=== PATIENT | female | born 1955 | race Caucasian/White ===

== ENCOUNTER 2020-04-29 11:09 | Emergency (ER) | payer MEDICARE, SELFPAY ==
[~2020-04-29] VITALS: Ht 152.4 cm; Wt 58.1 kg
[2020-04-29 11:19] VITALS: BP 139/73
--- NOTE | 2020-04-29 11:42 | NUR ---
C/O DIARRHEA. COVID+PMH: JASON
--- NOTE | 2020-04-29 12:55 | NUR ---
22G IV PLACED TO RIGHT HAND WITH GOOD BLOOD RETURN
[2020-04-29] MEDS: bamlanivimab 700 MG (1 VIAL) in NACL 0.9% @ 270 MLS/HR(270ml) IV ONE (12:59)
[2020-04-29] MEDS: COMMUNICATION ORDER MC ONE (13:01)
[2020-04-29] MEDS: diphenhydrAMINE 50 MG/ML VIAL IVP ONE (14:06)
--- NOTE | 2020-04-29 14:07 | NUR ---
IV d/c 2x2 gauze placed to IV site.
[2020-04-29 14:10] VITALS: BP 128/77
--- NOTE | 2020-04-29 14:10 | NUR ---
Patient discharged with v/s stable. Written and verbal after care instructions given and explained. Patient verbalized understanding. Ambulatory with steady gait. All questions addressed prior to discharge. Advised to follow up with PMD.
== END 2020-04-29 14:10 | disposition home or self-care (01) ==
LOC: MED 11:09
DX: U07.1 COVID-19 (principal); Z88.1 Allergy status to other antibiotic agents; Z90.49 Acquired absence of other specified parts of digestive tract
CPT/HCPCS: 96365; 96375; 99284; J1200; J7030; M0239